=== PATIENT | male | born 1990 | race Two or more races ===

== ENCOUNTER 2025-08-28 12:38 | Emergency (ER) | payer OTHER ==
[~2025-08-28] VITALS: Ht 170.2 cm; Wt 72.6 kg
[2025-08-28 14:59] VITALS: BP 123/79; TEMP 97.8; O2SAT 98
== END 2025-08-28 15:00 | disposition left against medical advice (07) ==
LOC: ER 12:58
DX: R51.9 Headache, unspecified (principal)